=== PATIENT | male | born 1980 | race Caucasian/White ===

== ENCOUNTER 2018-01-19 09:07 | Emergency (ER) | payer OTHER ==
[2018-01-19] MEDS ORDERED: PROPARACAINE 0.5% OPHTH DROPS 15 ML LEFTEYE STA (09:20)
--- NOTE | 2018-01-19 09:21 | ED Physician Documentation ---
PD HPI OPHTHO - Stated complaint Stated Complaint: L EYE IRRITATION - History obtained from History obtained from: Patient - History of Present Illness Timing - onset: Yesterday Timing - details: Abrupt onset, Still present Quality / character: Burning Associated symptoms: Redness, Swelling, Discharge. No: FB sensation, Loss of vision Contributing factors: Exposed to conjunctivitis (his daughter with URI and eye discharge. was Rx with eye drops for it.) Similar symptoms before: Has not had sx before Recently seen: Not recently seen Review of Systems Constitutional: denies: Fever, Chills Nose: denies: Rhinorrhea / runny nose, Congestion Throat: reports: Sore throat Respiratory: reports: Cough. denies: Dyspnea, Wheezing GI: denies: Nausea, Vomiting, Diarrhea PD PAST MEDICAL HISTORY - Past Medical History Cardiovascular: None Respiratory: None Neuro: None - Present Medications Home Medications: Ambulatory Orders Medication Instructions Recorded Confirmed Dexamethasone [Decadron] 4 mg PO DAILY #5 tablet 01/19/18 Ibuprofen [Motrin] 600 mg PO TID #20 tab 01/19/18 Sulfacetamide 10% Ophth Drops 2 drops OPTH Q3H #1 bottle 01/19/18 [Sulfamide 10% Ophth Drops] - Allergies Allergies/Adverse Reactions: Allergies Allergy/AdvReac Type Severity Reaction Status Date / Time No Known Drug Allergies Allergy Verified 01/19/18 09:24 PD ED PE NORMAL - Vitals Vital signs reviewed: Yes - General General: Alert and oriented X 3, No acute distress, Well developed/nourished - HEENT HEENT: PERRL, EOMI, Ears normal, Pharynx benign - Neck Neck: Supple, no meningeal sign, No adenopathy - Cardiac Cardiac: RRR, No murmur - Respiratory Respiratory: Clear bilaterally PD ED PE EXPANDED - Eyes Eyes: Left eye, Eyelid swelling, Injected conj/sclera, Exudate (just on left). No: Conj/sclera FB, Corneal abrasion Results - Vitals Vitals: Oxygen O2 Source Room air PD MEDICAL DECISION MAKING - ED course Complexity details: considered differential (has some URI symptoms but the one eye is red with swelling of lid c/w focal conjunctivitis as well. ), d/w patient Departure - Departure Disposition: 01 Home, Self Care Clinical Impression: Upper respiratory infection Qualifiers: URI type: unspecified URI Qualified Code(s): J06.9 - Acute upper respiratory infection, unspecified Conjunctivitis, acute Qualifiers: Acute conjunctivitis type: unspecified Laterality: left Qualified Code(s): H10.32 - Unspecified acute conjunctivitis, left eye Condition: Stable Record reviewed to determine appropriate education?: Yes Instructions: ED Conjunctivitis Nonspecific Follow-Up: ANN CAMARENA DO [Primary Care Provider] - Prescriptions: Dexamethasone [Decadron] 4 mg PO DAILY #5 tablet Ibuprofen [Motrin] 600 mg PO TID #20 tab Sulfacetamide 10% Ophth Drops [Sulfamide 10% Ophth Drops] 2 drops OPTH Q3H #1 bottle Comments: The discharge from the eyes may be viral correlating with the sore throat and congestion you have. It may be bacterial separately so we can go some antibiotic eyedrops. Tylenol or ibuprofen if needed for pains. Decadron steroid anti-inflammatory for a few days to help with the sore throat. Recheck if not improved over the next few days. Discharge Date/Time: 01/19/18 10:18
[2018-01-19 09:24] VITALS: BP 135/85
[2018-01-19] MEDS ORDERED: IBUPROFEN 600 MG TABLET PO STA (09:38)
[2018-01-19] MEDS ORDERED: DEXAMETHASONE 10 MG/ML VIAL PO STA (09:38)
== END 2018-01-19 10:18 | disposition home or self-care (01) ==
LOC: ED 09:07
DX: H10.32 Unspecified acute conjunctivitis, left eye (principal); J06.9 Acute upper respiratory infection, unspecified
CPT/HCPCS: 99283; A9270; J3490

== ENCOUNTER 2018-07-28 19:15 | Emergency (ER) | payer OTHER ==
[2018-07-28] MEDS ORDERED: IBUPROFEN 800 MG TABLET PO STA (19:58)
--- NOTE | 2018-07-28 19:59 | ED Physician Documentation ---
PD HPI LOWER EXT INJURY - Stated complaint Stated Complaint: ANKLE INJURY - Chief complaint Chief Complaint: Ext Problem - History obtained from History obtained from: Patient - History of Present Illness PD HPI LOW EXT INJURY LOCATION: Right (Inversion injury of the right ankle while playing basketball earlier today with lateral swelling but he is able to walk and bear weight. No other injuries.) Review of Systems Constitutional: reports: Reviewed and negative Cardiac: reports: Reviewed and negative Respiratory: reports: Reviewed and negative PD PAST MEDICAL HISTORY - Past Medical History Past Medical History: No Cardiovascular: None Respiratory: None Neuro: None Endocrine/Autoimmune: None GI: None : None HEENT: None Psych: None Musculoskeletal: None Derm: None - Past Surgical History Past Surgical History: Yes Ortho: Rotator cuff repair HEENT: Rhinoplasty - Present Medications Home Medications: Ambulatory Orders Medication Instructions Recorded Confirmed Dexamethasone [Decadron] 4 mg PO DAILY #5 tablet 01/19/18 Ibuprofen [Motrin] 600 mg PO TID #20 tab 01/19/18 Sulfacetamide 10% Ophth Drops 2 drops OPTH Q3H #1 bottle 01/19/18 [Sulfamide 10% Ophth Drops] Ibuprofen [Motrin] 800 mg PO Q8H PRN #30 tablet 07/28/18 - Allergies Allergies/Adverse Reactions: Allergies Allergy/AdvReac Type Severity Reaction Status Date / Time No Known Drug Allergies Allergy Verified 07/28/18 19:28 - Social History Does the pt smoke?: Yes Smoking Status: Current every day smoker Does the pt drink ETOH?: Yes Does the pt have substance abuse?: No - Immunizations Immunizations are current?: Yes - POLST Patient has POLST: No PD ED PE NORMAL - Vitals Vital signs reviewed: Yes - General General: Alert and oriented X 3, No acute distress - Extremities Extremities: Other (Lots of swelling over the lateral malleolus but without deformity or significant tenderness, he does have some tenderness over the ATFL, no foot tenderness. No proximal fibular tenderness.) - Neuro Neuro: Alert and oriented X 3, Normal speech Results - Vitals Vitals: Vital Signs - 24 hr 07/28/18 19:21 Temperature 37.0 C Heart Rate 85 Respiratory 16 Rate Blood Pressure 132/74 H O2 Saturation 96 Oxygen O2 Source Room air Departure - Departure Disposition: 01 Home, Self Care Clinical Impression: Right ankle sprain Qualifiers: Encounter type: initial encounter Involved ligament of ankle: anterior talofibular ligament Qualified Code(s): S93.491A - Sprain of other ligament of right ankle, initial encounter Condition: Good Record reviewed to determine appropriate education?: Yes Instructions: ED Sprain Ankle W X Ray Prescriptions: Ibuprofen [Motrin] 800 mg PO Q8H PRN #30 tablet PRN Reason: PAIN &/OR FEVER Comments: Recheck with your doctor in a week if not better, return for new or worsening symptoms. Your blood pressure was elevated today on check into the emergency department. This does not mean that you have hypertension, it is a common phenomenon to come to the emergency department and have elevated blood pressure. I recommend that you see your primary care physician within the week to have it rechecked when you are feeling better.
--- NOTE | 2018-07-28 20:13 | XRAY Report ---
Reason: PAIN/SWELLING R ANKLEX TODAY. Procedure Date: 07/28/2018 Accession Number: [id number] / [id number] Procedure: XR - Ankle 3 View RT CPT Code: FULL RESULT: EXAM: RIGHT ANKLE RADIOGRAPHY. EXAM DATE: 07/28/2018 07:40 PM. CLINICAL HISTORY: Inversion injury while playing basketball yesterday. Lateral ankle pain and swelling. COMPARISON: None. TECHNIQUE: 3 views. FINDINGS: Bones: Normal. No fractures or bone lesions. Joints: Normal. No effusion. No subluxations. The ankle mortise is normally aligned. Soft Tissues: Moderate edema over the lateral malleolus. IMPRESSION: No acute bony abnormality. RADIA
[2018-07-28 20:25] VITALS: BP 165/78
== END 2018-07-28 20:25 | disposition home or self-care (01) ==
LOC: ED 19:15
DX: S93.491A Sprain of other ligament of right ankle, initial encounter (principal); X50.1XXA Overexertion from prolonged static or awkward postures, initial encounter; Y93.67 Activity, basketball; R03.0 Elevated blood-pressure reading, without diagnosis of hypertension; F17.200 Nicotine dependence, unspecified, uncomplicated
CPT/HCPCS: 73610; 99283; A9270

== ENCOUNTER 2019-06-10 09:03 | Emergency (ER) | payer OTHER ==
[2019-06-10 09:12] VITALS: BP 105/71
[2019-06-10] MEDS ORDERED: IBUPROFEN 800 MG TABLET PO STA (09:26)
[2019-06-10] MEDS ORDERED: ACETAMINOPHEN 325 MG TABLET PO STA (09:26)
--- NOTE | 2019-06-10 09:26 | ED Physician Documentation ---
PD HPI LOWER EXT INJURY - Stated complaint Stated Complaint: RT ANKLE INJ - Chief complaint Chief Complaint: Ext Problem - History obtained from History obtained from: Patient - History of Present Illness PD HPI LOW EXT INJURY LOCATION: Right, Ankle Type of injury: Twist (inversion as stepped on another person's foot while playing basketball.) Where injury occurred: Other (basketball court) Timing - onset: Today (an hour ago) Timing - duration: Hours (1) Timing - details: Abrupt onset, Still present Improved by: Rest Worsened by: Moving, Other (walking on it) Associated symptoms: Swelling. No: Weakness, Numbness Similar symptoms before: Has not had sx before Recently seen: Not recently seen Review of Systems Skin: denies: Abrasion (s), Laceration (s) Neurologic: denies: Focal weakness, Numbness PD PAST MEDICAL HISTORY - Past Medical History Cardiovascular: None Respiratory: None Neuro: None Endocrine/Autoimmune: None GI: None : None HEENT: None Psych: None Musculoskeletal: None Derm: None - Past Surgical History Past Surgical History: Yes Ortho: Rotator cuff repair HEENT: Rhinoplasty - Present Medications Home Medications: Ambulatory Orders Medication Instructions Recorded Confirmed Ibuprofen [Motrin] 600 mg PO TID #20 tab 01/19/18 Sulfacetamide 10% Ophth Drops 2 drops OPTH Q3H #1 bottle 01/19/18 [Sulfamide 10% Ophth Drops] dexAMETHasone [Decadron] 4 mg PO DAILY #5 tablet 01/19/18 Ibuprofen [Motrin] 800 mg PO Q8H PRN #30 tablet 07/28/18 Ibuprofen 600 mg PO TID PRN #25 tablet 06/10/19 - Allergies Allergies/Adverse Reactions: Allergies Allergy/AdvReac Type Severity Reaction Status Date / Time No Known Drug Allergies Allergy Verified 06/10/19 09:12 - Social History Does the pt smoke?: Yes Smoking Status: Current every day smoker Does the pt drink ETOH?: Yes Does the pt have substance abuse?: No - Immunizations Immunizations are current?: Yes - POLST Patient has POLST: No PD ED PE NORMAL - Vitals Vital signs reviewed: Yes - General General: Alert and oriented X 3, No acute distress, Well developed/nourished - Derm Derm: Normal color, Warm and dry - Extremities Extremities: Other (right ankle with swelling and tender anterolateral aspect. The distal fibula is not tender directly. Medially not tender. ) - Neuro Neuro: Alert and oriented X 3, No motor deficit, No sensory deficit, Normal speech Results - Vitals Vitals: Oxygen O2 Source Room air - Rads (name of study) right ankle Radiology: Prelim report reviewed, EMP read contemporaneously, See rad report PD MEDICAL DECISION MAKING - ED course Complexity details: reviewed results (talar avulsion suggestion disrupted ATFL.), considered differential, d/w patient Departure - Departure Disposition: 01 Home, Self Care Clinical Impression: Inversion sprain of right ankle Qualifiers: Encounter type: initial encounter Qualified Code(s): S93.401A - Sprain of unspecified ligament of right ankle, initial encounter Closed avulsion fracture of right talus Qualifiers: Encounter type: initial encounter Fracture alignment: nondisplaced Qualified Code(s): S92.154A - Nondisplaced avulsion fracture (chip fracture) of right talus, initial encounter for closed fracture Condition: Stable Record reviewed to determine appropriate education?: Yes Instructions: ED Fx Foot, ED Sprain Ankle Follow-Up: ANN CAMARENA, [Primary Care Provider] - Prescriptions: Ibuprofen 600 mg PO TID PRN #25 tablet PRN Reason: Pain Comments: The x-ray shows a small avulsion fracture of the top of the proximal bone of the foot. This would represent a pulling up of the ligament that attaches in that area. This gets treated more as a torn ligament and as a fracture per se but it does show that there is full disruption of part of the ligament and so this will likely take 3 to 4 weeks to heal up. Initially partial to no weightbearing as needed for the pain of it. The pain will decrease as the swelling goes down in the initial week. From there you should be able to use just the ankle brace for the remainder 3 to 4 weeks. Ibuprofen 3 times a day for the next week. Add Tylenol as needed for pains. Ice rest and elevate the ankle often today and tomorrow to reduce swelling. Follow-up with your primary care in about a week to ensure it starting to heal well enough. Call for an appointment. Forms: Activity restrictions Discharge Date/Time: 06/10/19 11:08
--- NOTE | 2019-06-10 10:32 | XRAY Report ---
Reason: inversion ankle this morning Procedure Date: 06/10/2019 Accession Number: [id number] / [id number] Procedure: XR - Ankle 3 View RT CPT Code: FULL RESULT: EXAM: RIGHT ANKLE RADIOGRAPHY EXAM DATE: 06/10/2019 09:57 AM. CLINICAL HISTORY: Inversion ankle this morning. COMPARISON: ANKLE 3 VIEW RT 07/28/2018 7:30 PM. TECHNIQUE: 3 views. FINDINGS: Bones: Small osseous fragment at the dorsal talar neck suggesting acute avulsion fracture. Joints: Mortise joint alignment is normal. No significant degenerative findings. Soft Tissues: Unremarkable. IMPRESSION: 1. Probable acute dorsal talar neck avulsion fracture. RADIA
[2019-06-10] MEDS ORDERED: traMADol 50 MG TABLET PO STA (10:41)
== END 2019-06-10 11:08 | disposition home or self-care (01) ==
LOC: ED 09:03
DX: S93.401A Sprain of unspecified ligament of right ankle, initial encounter (principal); S92.154A Nondisplaced avulsion fracture (chip fracture) of right talus, initial encounter for closed fracture; X50.1XXA Overexertion from prolonged static or awkward postures, initial encounter; Y93.67 Activity, basketball; Y92.310 Basketball court as the place of occurrence of the external cause; F17.200 Nicotine dependence, unspecified, uncomplicated
CPT/HCPCS: 73610; 99283; A9270

== ENCOUNTER 2019-06-17 08:19 | Outpatient (CLI) | payer OTHER ==
--- NOTE | 2019-06-18 14:34 | CT Report ---
Reason: FRACTURE OF LOWER LEG Procedure Date: 06/17/2019 Accession Number: [id number] / [id number] Procedure: CT - LOWER EXTREMITY WO - RT CPT Code: FULL RESULT: EXAM: RIGHT ANKLE/HINDFOOT CT WITHOUT CONTRAST EXAM DATE: 06/17/2019 09:09 AM. CLINICAL HISTORY: Fracture of lower leg. COMPARISON: ANKLE 3 VIEW RT 06/10/2019 9:28 AM. TECHNIQUE: Thin-section axial images were acquired of the ankle/hindfoot without contrast. Post-processing: Coronal and sagittal reformats. Other: None. In accordance with CT protocol optimization, one or more of the following dose reduction techniques were utilized for this exam: automated exposure control, adjustment of mA and/or KV based on patient size, or use of iterative reconstructive technique. FINDINGS: Bones: No fracture or bone lesion. Joints: There is an avulsion fracture of the dorsum of the talar neck, suggestive of prior trauma to the anterior talofibular ligament. The fragment has smooth margins suggesting an old injury. There is no acute fracture. The joint spaces are preserved. Musculature: Normal. No fatty atrophy. Other: No tendon entrapment. No soft tissue swelling. IMPRESSION: 1. Old avulsion injury of the talar attachment of the anterior talofibular ligament. 2. No other significant abnormality. RADIA
== END 2019-06-17 08:20 | disposition home or self-care (01) ==
LOC: DI 08:19
PROVIDERS: ATTEND Physician Assistant
DX: S92.151A Displaced avulsion fracture (chip fracture) of right talus, initial encounter for closed fracture (principal)

== ENCOUNTER 2019-07-18 14:01 | Emergency (ER) | payer OTHER ==
[2019-07-18 14:08] VITALS: BP 131/81
--- NOTE | 2019-07-18 14:34 | ED Physician Documentation ---
PD HPI HEENT - Stated complaint Stated Complaint: LT EAR PX - Chief complaint Chief Complaint: Heent - History obtained from History obtained from: Patient - History of Present Illness Timing - onset: Yesterday Timing - duration: Days (2) Timing - details: Gradual onset Pain level max: 3 Pain level now: 3 Location: Right ear, Left ear Improves: Nothing Worsens: Other (nothing) Associated symptoms: No: Fever, Congestion, Rhinorrhea, Trismus, Unable to swallow, Swollen nodes, Facial swelling, Headache, Cough Similar symptoms before: Diagnosis (otitis externa, was placed on auro dri by his doctor, did not help) - Additional information Additional information: Patient complains of pain to the bilateral ears and occasional ringing. He was recently on prednisone for another condition. Is not taking aspirin. No fevers. No URI symptoms Review of Systems Constitutional: denies: Fever, Chills Respiratory: denies: Cough GI: denies: Nausea, Vomiting : denies: Dysuria Skin: denies: Rash Musculoskeletal: denies: Neck pain, Back pain Neurologic: denies: Headache PD PAST MEDICAL HISTORY - Past Medical History Cardiovascular: None Respiratory: None Neuro: None Endocrine/Autoimmune: None GI: None : None HEENT: None Psych: None Musculoskeletal: None Derm: None - Past Surgical History Past Surgical History: Yes Ortho: Rotator cuff repair HEENT: Rhinoplasty - Present Medications Home Medications: Ambulatory Orders Medication Instructions Recorded Confirmed Ibuprofen [Motrin] 600 mg PO TID #20 tab 01/19/18 Sulfacetamide 10% Ophth Drops 2 drops OPTH Q3H #1 bottle 01/19/18 [Sulfamide 10% Ophth Drops] dexAMETHasone [Decadron] 4 mg PO DAILY #5 tablet 01/19/18 Ibuprofen [Motrin] 800 mg PO Q8H PRN #30 tablet 07/28/18 Ibuprofen 600 mg PO TID PRN #25 tablet 06/10/19 Neomycin/Polymyx/Hc Otic Drops 4 drops OT TID #1 bottle 07/18/19 [Cortisporin Ear Susp] - Allergies Allergies/Adverse Reactions: Allergies Allergy/AdvReac Type Severity Reaction Status Date / Time No Known Drug Allergies Allergy Verified 07/18/19 14:08 - Social History Does the pt smoke?: Yes Smoking Status: Current every day smoker Does the pt drink ETOH?: Yes Does the pt have substance abuse?: No - Immunizations Immunizations are current?: Yes - POLST Patient has POLST: No PD ED PE NORMAL - Vitals Vital signs reviewed: Yes - General General: Alert and oriented X 3, No acute distress, Well developed/nourished - HEENT HEENT: PERRL, Moist mucous membranes, Pharynx benign, Other (Bilateral tympanic membranes are normal. Mild erythema to the bilateral ear canals. Mild swelling. No drainage.) - Neck Neck: Supple, no meningeal sign - Cardiac Cardiac: RRR, Strong equal pulses - Respiratory Respiratory: No respiratory distress, Clear bilaterally - Derm Derm: Warm and dry - Neuro Neuro: Alert and oriented X 3 - Psych Psych: Normal mood, Normal affect Results - Vitals Vitals: Vital Signs - 24 hr 07/18/19 14:06 Temperature 36.5 C Heart Rate 73 Respiratory 16 Rate Blood Pressure 131/81 H O2 Saturation 96 Oxygen O2 Source Room air PD MEDICAL DECISION MAKING - ED course Complexity details: considered differential, d/w patient ED course: Patient with what appears to be bilateral acute otitis externa. Will place on Cortisporin otic and follow-up with his doctor. Patient counseled regarding signs and symptoms for which I believe and urgent re-evaluation would be necessary. Patient with good understanding of and agreement to plan and is comfortable going home at this time This document was made in part using voice recognition software. While efforts are made to proofread this document, sound alike and grammatical errors may occur. Departure - Departure Disposition: 01 Home, Self Care Clinical Impression: Otitis externa Qualifiers: Otitis externa type: unspecified type Chronicity: acute Laterality: bilateral Qualified Code(s): H60.503 - Unspecified acute noninfective otitis externa, bilateral Condition: Good Instructions: ED Otitis Externa Follow-Up: ANN CAMARENA DO [Primary Care Provider] - Within 1 week Prescriptions: Neomycin/Polymyx/Hc Otic Drops [Cortisporin Ear Susp] 4 drops OT TID #1 bottle Comments: Use the medications as prescribed. Return if you worsen.
== END 2019-07-18 14:41 | disposition home or self-care (01) ==
LOC: ED 14:01
DX: H60.503 Unspecified acute noninfective otitis externa, bilateral (principal)
CPT/HCPCS: 99282; 99284